=== PATIENT | male | born 1960 | race Caucasian/White ===

== ENCOUNTER 2019-02-23 11:06 | Emergency (ER) | payer MEDICAID ==
--- NOTE | 2019-02-23 12:40 | ER Document Report ---
ED Medical Screen (RME) - General Stated Complaint: LEFT ARM PAIN AND TINGLING Time Seen by Provider: 02/23/19 12:33 Mode of Arrival: Ambulatory Notes: 58-year-old male presents to the emergency department with history of DVT diabetes back pain with history of "flat lining "due to having a DVT. Female with patient reports that they just moved here and he does not have a provider. He was supposed to receive his PT/INR level February 20 but he has not. She is worried that it may be elevated or low and he may develop another clot and flat line again. She reports he does have problems with his left arm numbness and tingling but that is been going on for awhile. I have greeted and performed a rapid initial assessment of this patient. A comprehensive ED assessment and evaluation of the patient, analysis of test results and completion of the medical decision making process will be conducted by additional ED providers. Dictation of this chart was performed using voice recognition software; therefore, there may be some unintended grammatical errors. Physical Exam - Vital signs Vitals: Temp Pulse Resp BP Pulse Ox 97.7 F 65 18 135/73 H 93 02/23/19 11:52 02/23/19 11:52 02/23/19 11:52 02/23/19 11:52 02/23/19 11:52 Course - Vital Signs Vital signs: Temp Pulse Resp BP Pulse Ox 97.7 F 65 18 135/73 H 93 02/23/19 11:52 02/23/19 11:52 02/23/19 11:52 02/23/19 11:52 02/23/19 11:52
[2019-02-23 13:08] LABS: ABSOLUTE BASOPHILS # (AUTO) 0.1 10^3/uL (0.0-0.2); ABSOLUTE EOSINOPHILS # (AUTO) 0.1 10^3/uL (0.0-0.6); ABSOLUTE LYMPHOCYTES (AUTO) 0.9 10^3/uL (0.5-4.7); ABSOLUTE MONOCYTES (AUTO) 0.3 10^3/uL (0.1-1.4); ABSOLUTE NEUT (AUTO) 2.3 10^3/uL (1.7-8.2); BASOPHILS % (AUTO) 1.9 % (0-2); EOSINOPHILS % (AUTO) 1.4 % (0-6); HEMOGLOBIN 16.7 g/dL (13.5-17.0); LYMPHOCYTES % (AUTO) 24.7 % (13-45); MEAN CORPUSCULAR HEMOGLOBIN 34.4 pg (27.0-33.4); MEAN CORPUSCULAR HGB CONC 34.1 g/dL (32.0-36.0); MEAN CORPUSCULAR VOLUME 101 fl (80-97); MONOCYTES % (AUTO) 8.8 % (3-13); RED BLOOD COUNT 4.86 10^6/uL (4.35-5.55); RED CELL DISTRIBUTION WIDTH 15.2 % (11.5-14.0); SEGMENTED NEUTROPHILS % (AUTO) 63.2 % (42-78); TOTAL CELLS COUNTED % (AUTO) 100 %; WHITE BLOOD COUNT 3.7 10^3/uL (4.0-10.5)
[2019-02-23 13:09] LABS: INTERNATIONAL RATION (INR) 3.64; PROTHROMBIN TIME 37.1 SEC (11.4-15.4)
[2019-02-23 13:26] LABS: ALKALINE PHOSPHATASE 195 U/L (38-126); ANION GAP 5 (5-19); ASPARTATE AMINO TRANSFERASE 67 U/L (17-59); BILIRUBIN,DIRECT 0.5 mg/dL (0.0-0.4); BILIRUBIN,TOTAL 2.6 mg/dL (0.2-1.3); BLOOD UREA NITROGEN 12 mg/dL (7-20); CALCIUM 8.6 mg/dL (8.4-10.2); CARBON DIOXIDE 25 mmol/L (22-30); CHLORIDE 110 mmol/L (98-107); GLUCOSE 180 mg/dL (75-110)
[2019-02-23 13:41] LABS: PLATELET COUNT 80 10^3/uL (150-450)
--- NOTE | 2019-02-23 13:59 | ER Document Report ---
HPI - HPI Patient complains to provider of: labs Time Seen by Provider: 02/23/19 12:33 Onset: Other Quality of pain: No pain Pain Level: Denies Context: 58-year-old male presents to the emergency department with history of DVT diabetes back pain with history of "flat lining "due to having a DVT in his arm. Patient also has history of hep C in the past but no longer is hep C.. Female with patient reports that they just moved here and he does not have a provider yet. He was supposed to receive his PT/INR level February 20 but he has not. His last INR was 3.0. His coumadin was increased to 3 mg qHS. She is worried that it may be elevated or low and he may develop another clot and flat line again. Patient is asking for labs to be done. He also reports he does have problems with his left arm numbness and tingling but that has been going on for awhile. He denies fever vomiting diarrhea. Denies chest pain shortness of breath. Associated Symptoms: None Exacerbated by: Denies Relieved by: Denies Similar symptoms previously: Yes Recently seen / treated by doctor: No Past Medical History - General Information source: Patient - Social History Smoking Status: Never Smoker Chew tobacco use (# tins/day): No Frequency of alcohol use: None Drug Abuse: None Lives with: Family Family History: None Patient has suicidal ideation: No Patient has homicidal ideation: No - Past Medical History Cardiac Medical History: Reports: Hx DVT Endocrine Medical History: Reports: Hx Diabetes Mellitus Type 2 GI Medical History: Reports: Hx Hepatitis Surgical Hx: Negative Vertical Provider Document - CONSTITUTIONAL Agree With Documented VS: Yes Exam Limitations: No Limitations General Appearance: WD/WN, No Apparent Distress - INFECTION CONTROL TRAVEL OUTSIDE OF THE [place] IN LAST 30 DAYS: No - HEENT HEENT: Atraumatic, Normocephalic - NECK Neck: Normal Inspection, Supple - RESPIRATORY Respiratory: Breath Sounds Normal, No Respiratory Distress - CARDIOVASCULAR Cardiovascular: Regular Rate - MUSCULOSKELETAL/EXTREMETIES Musculoskeletal/Extremeties: BARRY WEEKS - NEURO Level of Consciousness: Awake, Alert, Appropriate Motor/Sensory: No Motor Deficit - DERM Integumentary: Warm, Dry Course - Re-evaluation Re-evalutation: 02/23/19 13:57 58-year-old male with history of diabetes DVT and hep C presents emergency department for request for his PT and INR. Reports he just moved here from [place] and does not have a provider. He was told to come to the emergency department for his labs. Last INR was 3.0 on January 23. He reports that his provider increased his Coumadin to 3 mg at night. Today's PT is 37 with and INR 3.6. This was discussed with patient. He is taking his labs and will fax it to his provider for direction. He will be also given information on primary care providers. 02/23/19 12:50 02/23/19 12:50 MCV 101 fl (80-97) H 02/23/19 12:50 MCH 34.4 pg (27.0-33.4) H 02/23/19 12:50 MCHC 34.1 g/dL (32.0-36.0) 02/23/19 12:50 RDW 15.2 % (11.5-14.0) H 02/23/19 12:50 Seg Neutrophils % 63.2 % (42-78) 02/23/19 12:50 Chloride 110 mmol/L (98-107) H 02/23/19 12:50 Carbon Dioxide 25 mmol/L (22-30) 02/23/19 12:50 Anion Gap 5 (5-19) 02/23/19 12:50 Est GFR ( Amer) > 60 (>60) 02/23/19 12:50 Glucose 180 mg/dL (75-110) H 02/23/19 12:50 Calcium 8.6 mg/dL (8.4-10.2) 02/23/19 12:50 Total Bilirubin 2.6 mg/dL (0.2-1.3) H 02/23/19 12:50 AST 67 U/L (17-59) H 02/23/19 12:50 Alkaline Phosphatase 195 U/L (38-126) H 02/23/19 12:50 Total Protein 7.0 g/dL (6.3-8.2) 02/23/19 12:50 Albumin 3.0 g/dL (3.5-5.0) L 02/23/19 12:50 02/23/19 15:17 - Vital Signs Vital signs: Temp Pulse Resp BP Pulse Ox 97.7 F 65 18 135/73 H 93 02/23/19 12:32 02/23/19 12:32 02/23/19 12:32 02/23/19 12:32 02/23/19 12:32 - Laboratory Result Diagrams: 02/23/19 12:50 02/23/19 12:50 Laboratory results interpreted by me: 02/23/19 02/23/19 02/23/19 12:50 12:50 12:50 WBC 3.7 L MCV 101 H MCH 34.4 H RDW 15.2 H Plt Count 80 L PT 37.1 H Chloride 110 H Glucose 180 H Total Bilirubin 2.6 H Direct Bilirubin 0.5 H AST 67 H Alkaline Phosphatase 195 H Albumin 3.0 L Discharge - Discharge Clinical Impression: PT\\INR Condition: Stable Disposition: HOME, SELF-CARE Instructions: Coumadin (warfarin) ([facility]), Family Physicians / Practices Additional Instructions: *You have been evaluated for PT/INR *Your PT was 37.1 with an INR of 3.64 *Follow up with your primary care provider today. Fax all information to them. * Follow-up with the primary care provider here in [place] within 1 week *Return to ED for worsening condition, changes, needs Monitor your blood pressure. Your blood pressure was elevated today. This may be because you were anxious, in pain or because you need medication. It is important to follow up with your primary care provider for full evaluation. Forms: Elevated Blood Pressure
[2019-02-23 14:18] VITALS: BP 136/75
== END 2019-02-23 14:05 | disposition home or self-care (01) ==
LOC: ER 11:06
DX: Z51.81 Encounter for therapeutic drug level monitoring (principal); I82.409 Acute embolism and thrombosis of unspecified deep veins of unspecified lower extremity; Z79.01 Long term (current) use of anticoagulants; R20.0 Anesthesia of skin; R20.2 Paresthesia of skin; E11.9 Type 2 diabetes mellitus without complications
CPT/HCPCS: 36415; 80053; 85025; 85610; 99284

== ENCOUNTER → 2019-03-29 | Outpatient (CLI) | payer MEDICAID ==
[2019-03-29 12:16] LABS: INTERNATIONAL RATION (INR) 2.92; PROTHROMBIN TIME 31.1 SEC (11.4-15.4)
== END ==
LOC: OD 11:19
PROVIDERS: ATTEND Family Medicine Geriatric Medicine
DX: I82.409 Acute embolism and thrombosis of unspecified deep veins of unspecified lower extremity (principal)
CPT/HCPCS: 36415; 85610

== ENCOUNTER → 2019-04-12 | Outpatient (CLI) | payer MEDICAID ==
[2019-04-12 13:01] LABS: INTERNATIONAL RATION (INR) 2.42; PROTHROMBIN TIME 26.8 SEC (11.4-15.4)
== END ==
LOC: OD 12:14
PROVIDERS: ATTEND Family Medicine Geriatric Medicine
DX: I82.409 Acute embolism and thrombosis of unspecified deep veins of unspecified lower extremity (principal)
CPT/HCPCS: 36415; 85610

== ENCOUNTER → 2019-05-02 | Outpatient (CLI) | payer MEDICAID ==
[2019-05-02 13:01] LABS: ABSOLUTE LYMPHOCYTES (AUTO) 0.9 10^3/uL (0.5-4.7); ABSOLUTE MONOCYTES (AUTO) 0.3 10^3/uL (0.1-1.4); ABSOLUTE NEUT (AUTO) 2.3 10^3/uL (1.7-8.2); BASOPHILS % (AUTO) 1.3 % (0-2); EOSINOPHILS % (AUTO) 1.1 % (0-6); HEMATOCRIT 43.9 % (37.9-51.0); HEMOGLOBIN 15.3 g/dL (13.5-17.0); LYMPHOCYTES % (AUTO) 25.7 % (13-45); MEAN CORPUSCULAR HEMOGLOBIN 34.8 pg (27.0-33.4); MEAN CORPUSCULAR HGB CONC 34.9 g/dL (32.0-36.0); MEAN CORPUSCULAR VOLUME 100 fl (80-97); MONOCYTES % (AUTO) 7.7 % (3-13); RED BLOOD COUNT 4.41 10^6/uL (4.35-5.55); RED CELL DISTRIBUTION WIDTH 15.4 % (11.5-14.0); SEGMENTED NEUTROPHILS % (AUTO) 64.2 % (42-78); TOTAL CELLS COUNTED % (AUTO) 100 %; WHITE BLOOD COUNT 3.6 10^3/uL (4.0-10.5)
[2019-05-02 13:04] LABS: INTERNATIONAL RATION (INR) 2.54; PROTHROMBIN TIME 27.8 SEC (11.4-15.4)
[2019-05-02 13:26] LABS: ALBUMIN 2.9 g/dL (3.5-5.0); ALKALINE PHOSPHATASE 215 U/L (38-126); ANION GAP 7 (5-19); ASPARTATE AMINO TRANSFERASE 92 U/L (17-59); BILIRUBIN,DIRECT 0.6 mg/dL (0.0-0.4); BILIRUBIN,TOTAL 2.7 mg/dL (0.2-1.3); BLOOD UREA NITROGEN 13 mg/dL (7-20); CALCIUM 8.5 mg/dL (8.4-10.2); CARBON DIOXIDE 22 mmol/L (22-30); CHLORIDE 109 mmol/L (98-107); GLUCOSE 223 mg/dL (75-110); POTASSIUM 4.6 mmol/L (3.6-5.0); TOTAL PROTEIN 7.1 g/dL (6.3-8.2)
[2019-05-02 13:37] LABS: PLATELET COUNT 95 10^3/uL (150-450)
[2019-05-03 11:37] LABS: CREATININE URINE 157.2 mg/dL (Not Estab.); MICROALBUMIN URINE 8.6 ug/mL (Not Estab.)
== END ==
LOC: OD 11:42
PROVIDERS: ATTEND Family Medicine Geriatric Medicine
DX: E11.9 Type 2 diabetes mellitus without complications (principal); I10 Essential (primary) hypertension; I82.409 Acute embolism and thrombosis of unspecified deep veins of unspecified lower extremity; Z79.899 Other long term (current) drug therapy
CPT/HCPCS: 36415; 80053; 82043; 82570; 83036; 84443; 85025; 85610

== ENCOUNTER → 2019-05-17 | Outpatient (CLI) | payer MEDICAID ==
[2019-05-17 14:12] LABS: INTERNATIONAL RATION (INR) 2.42; PROTHROMBIN TIME 26.7 SEC (11.4-15.4)
[2019-05-17 14:23] LABS: ABSOLUTE EOSINOPHILS # (AUTO) 0.1 10^3/uL (0.0-0.6); ABSOLUTE LYMPHOCYTES (AUTO) 1.2 10^3/uL (0.5-4.7); ABSOLUTE MONOCYTES (AUTO) 0.4 10^3/uL (0.1-1.4); ABSOLUTE NEUT (AUTO) 2.6 10^3/uL (1.7-8.2); BASOPHILS % (AUTO) 1.1 % (0-2); EOSINOPHILS % (AUTO) 1.3 % (0-6); HEMATOCRIT 44.6 % (37.9-51.0); HEMOGLOBIN 15.8 g/dL (13.5-17.0); LYMPHOCYTES % (AUTO) 27.9 % (13-45); MEAN CORPUSCULAR HEMOGLOBIN 35.1 pg (27.0-33.4); MEAN CORPUSCULAR HGB CONC 35.5 g/dL (32.0-36.0); MEAN CORPUSCULAR VOLUME 99 fl (80-97); MONOCYTES % (AUTO) 9.4 % (3-13); RED CELL DISTRIBUTION WIDTH 15.4 % (11.5-14.0); SEGMENTED NEUTROPHILS % (AUTO) 60.3 % (42-78); TOTAL CELLS COUNTED % (AUTO) 100 %; WHITE BLOOD COUNT 4.3 10^3/uL (4.0-10.5)
[2019-05-17 14:31] LABS: ALKALINE PHOSPHATASE 218 U/L (38-126); ANION GAP 7 (5-19); ASPARTATE AMINO TRANSFERASE 80 U/L (17-59); BILIRUBIN,DIRECT 0.6 mg/dL (0.0-0.4); BLOOD UREA NITROGEN 11 mg/dL (7-20); CALCIUM 8.5 mg/dL (8.4-10.2); CARBON DIOXIDE 23 mmol/L (22-30); CHLORIDE 108 mmol/L (98-107); CHOLESTEROL 159.53 mg/dL (0-200); GLUCOSE 129 mg/dL (75-110); POTASSIUM 4.1 mmol/L (3.6-5.0); TOTAL PROTEIN 7.1 g/dL (6.3-8.2); TRIGLYCERIDES 170 mg/dL (<150)
[2019-05-17 14:46] LABS: BLOOD UREA NITROGEN 11 mg/dL (7-20); CALCIUM 8.5 mg/dL (8.4-10.2); CHLORIDE 108 mmol/L (98-107); DIRECT LDL < 30 mg/dL (<100); GLUCOSE 129 mg/dL (75-110); POTASSIUM 4.1 mmol/L (3.6-5.0)
[2019-05-17 14:47] LABS: ALKALINE PHOSPHATASE 218 U/L (38-126); ANION GAP 7 (5-19); ASPARTATE AMINO TRANSFERASE 80 U/L (17-59); BILIRUBIN,DIRECT 0.6 mg/dL (0.0-0.4); CARBON DIOXIDE 23 mmol/L (22-30); TOTAL PROTEIN 7.1 g/dL (6.3-8.2)
[2019-05-17 14:49] LABS: PLATELET COUNT 75 10^3/uL (150-450)
[2019-05-17 14:52] LABS: ABSOLUTE EOSINOPHILS # (AUTO) 0.1 10^3/uL (0.0-0.6); ABSOLUTE LYMPHOCYTES (AUTO) 1.2 10^3/uL (0.5-4.7); ABSOLUTE MONOCYTES (AUTO) 0.4 10^3/uL (0.1-1.4); ABSOLUTE NEUT (AUTO) 2.6 10^3/uL (1.7-8.2); BASOPHILS % (AUTO) 1.1 % (0-2); EOSINOPHILS % (AUTO) 1.3 % (0-6); HEMATOCRIT 44.6 % (37.9-51.0); HEMOGLOBIN 15.8 g/dL (13.5-17.0); LYMPHOCYTES % (AUTO) 27.9 % (13-45); MEAN CORPUSCULAR HEMOGLOBIN 35.1 pg (27.0-33.4); MEAN CORPUSCULAR HGB CONC 35.5 g/dL (32.0-36.0); MEAN CORPUSCULAR VOLUME 99 fl (80-97); MONOCYTES % (AUTO) 9.4 % (3-13); RED CELL DISTRIBUTION WIDTH 15.4 % (11.5-14.0); SEGMENTED NEUTROPHILS % (AUTO) 60.3 % (42-78); TOTAL CELLS COUNTED % (AUTO) 100 %; WHITE BLOOD COUNT 4.3 10^3/uL (4.0-10.5)
[2019-05-17 14:53] LABS: PLATELET COUNT 75 10^3/uL (150-450)
[2019-05-18 11:37] LABS: CREATININE URINE 109.3 mg/dL (Not Estab.); MICROALBUMIN URINE <3.0 ug/mL (Not Estab.)
== END ==
LOC: OD 12:58
PROVIDERS: ATTEND Physician Assistant
DX: R17 Unspecified jaundice (principal); E11.9 Type 2 diabetes mellitus without complications; I10 Essential (primary) hypertension; Z79.899 Other long term (current) drug therapy; I27.82 Chronic pulmonary embolism; I27.20 Pulmonary hypertension, unspecified
CPT/HCPCS: 36415; 80053; 80061; 82043; 82570; 83036; 84443; 85025; 85610; 87070

== ENCOUNTER → 2019-06-08 | Outpatient (CLI) | payer MEDICAID ==
[2019-06-08 12:43] LABS: INTERNATIONAL RATION (INR) 2.88; PROTHROMBIN TIME 30.8 SEC (11.4-15.4)
== END ==
LOC: OD 11:57
PROVIDERS: ATTEND Family Medicine Geriatric Medicine
DX: I82.409 Acute embolism and thrombosis of unspecified deep veins of unspecified lower extremity (principal)
CPT/HCPCS: 36415; 85610

== ENCOUNTER → 2019-07-11 | Outpatient (CLI) | payer MEDICAID ==
[2019-07-11 13:29] LABS: INTERNATIONAL RATION (INR) 3.22; PROTHROMBIN TIME 33.6 SEC (11.4-15.4)
== END ==
LOC: OD 12:45
PROVIDERS: ATTEND Family Medicine Geriatric Medicine
DX: I26.99 Other pulmonary embolism without acute cor pulmonale (principal); I82.409 Acute embolism and thrombosis of unspecified deep veins of unspecified lower extremity
CPT/HCPCS: 36415; 85610

== ENCOUNTER → 2019-07-21 | Outpatient (CLI) | payer MEDICAID ==
[2019-07-21 15:41] LABS: INTERNATIONAL RATION (INR) 2.38; PROTHROMBIN TIME 26.4 SEC (11.4-15.4)
== END ==
LOC: OD 14:49
PROVIDERS: ATTEND Family Medicine Geriatric Medicine
DX: I82.409 Acute embolism and thrombosis of unspecified deep veins of unspecified lower extremity (principal)
CPT/HCPCS: 36415; 85610

== ENCOUNTER → 2019-08-17 | Outpatient (CLI) | payer MEDICAID ==
[2019-08-17 13:21] LABS: INTERNATIONAL RATION (INR) 2.14; PROTHROMBIN TIME 24.3 SEC (11.4-15.4)
== END ==
LOC: OD 12:46
PROVIDERS: ATTEND Family Medicine Geriatric Medicine
DX: I82.409 Acute embolism and thrombosis of unspecified deep veins of unspecified lower extremity (principal); E11.9 Type 2 diabetes mellitus without complications
CPT/HCPCS: 36415; 83036; 85610

== ENCOUNTER → 2019-08-29 | Outpatient (CLI) | payer MEDICAID ==
[2019-08-29 15:56] LABS: INTERNATIONAL RATION (INR) 1.84; PROTHROMBIN TIME 21.5 SEC (11.4-15.4)
== END ==
LOC: OD 14:58
PROVIDERS: ATTEND Family Medicine Geriatric Medicine
DX: I82.409 Acute embolism and thrombosis of unspecified deep veins of unspecified lower extremity (principal)
CPT/HCPCS: 36415; 85610

== ENCOUNTER → 2019-09-12 | Outpatient (CLI) | payer MEDICAID ==
[2019-09-12 16:12] LABS: INTERNATIONAL RATION (INR) 3.49; PROTHROMBIN TIME 35.9 SEC (11.4-15.4)
[2019-09-12 16:16] LABS: INTERNATIONAL RATION (INR) 3.49; PROTHROMBIN TIME 35.9 SEC (11.4-15.4)
[2019-09-12 16:21] LABS: ABSOLUTE EOSINOPHILS # (AUTO) 0.1 10^3/uL (0.0-0.6); ABSOLUTE LYMPHOCYTES (AUTO) 1.2 10^3/uL (0.5-4.7); ABSOLUTE MONOCYTES (AUTO) 0.5 10^3/uL (0.1-1.4); ABSOLUTE NEUT (AUTO) 2.1 10^3/uL (1.7-8.2); BASOPHILS % (AUTO) 1.2 % (0-2); EOSINOPHILS % (AUTO) 1.7 % (0-6); HEMATOCRIT 43.1 % (37.9-51.0); LYMPHOCYTES % (AUTO) 30.2 % (13-45); MEAN CORPUSCULAR HEMOGLOBIN 34.5 pg (27.0-33.4); MEAN CORPUSCULAR HGB CONC 34.7 g/dL (32.0-36.0); MEAN CORPUSCULAR VOLUME 100 fl (80-97); MONOCYTES % (AUTO) 13.7 % (3-13); RED BLOOD COUNT 4.34 10^6/uL (4.35-5.55); RED CELL DISTRIBUTION WIDTH 15.1 % (11.5-14.0); SEGMENTED NEUTROPHILS % (AUTO) 53.2 % (42-78); TOTAL CELLS COUNTED % (AUTO) 100 %
[2019-09-12 16:37] LABS: ALBUMIN 2.4 g/dL (3.5-5.0); ALKALINE PHOSPHATASE 140 U/L (38-126); ANION GAP 6 (5-19); ASPARTATE AMINO TRANSFERASE 74 U/L (17-59); BILIRUBIN,DIRECT 0.3 mg/dL (0.0-0.4); BILIRUBIN,TOTAL 1.7 mg/dL (0.2-1.3); BLOOD UREA NITROGEN 11 mg/dL (7-20); CALCIUM 7.8 mg/dL (8.4-10.2); CARBON DIOXIDE 20 mmol/L (22-30); CHLORIDE 110 mmol/L (98-107); GLUCOSE 171 mg/dL (75-110); POTASSIUM 3.6 mmol/L (3.6-5.0); TOTAL PROTEIN 6.1 g/dL (6.3-8.2)
[2019-09-12 16:43] LABS: PLATELET COUNT 81 10^3/uL (150-450)
== END ==
LOC: OD 15:18
PROVIDERS: ATTEND Family Medicine Geriatric Medicine
DX: C22.0 Liver cell carcinoma (principal); I82.409 Acute embolism and thrombosis of unspecified deep veins of unspecified lower extremity; I26.99 Other pulmonary embolism without acute cor pulmonale; K74.60 Unspecified cirrhosis of liver
CPT/HCPCS: 36415; 80053; 82105; 85025; 85610

== ENCOUNTER → 2019-09-22 | Outpatient (CLI) | payer MEDICAID ==
[2019-09-22 17:25] LABS: INTERNATIONAL RATION (INR) 2.46; PROTHROMBIN TIME 27.1 SEC (11.4-15.4)
== END ==
LOC: OD 16:23
PROVIDERS: ATTEND Family Medicine Geriatric Medicine
DX: I82.409 Acute embolism and thrombosis of unspecified deep veins of unspecified lower extremity (principal)
CPT/HCPCS: 36415; 85610

== ENCOUNTER → 2019-10-10 | Outpatient (CLI) | payer MEDICAID ==
[2019-10-10 14:46] LABS: INTERNATIONAL RATION (INR) 2.34; PROTHROMBIN TIME 26.1 SEC (11.4-15.4)
== END ==
LOC: OD 14:04
PROVIDERS: ATTEND Family Medicine Geriatric Medicine
DX: I82.409 Acute embolism and thrombosis of unspecified deep veins of unspecified lower extremity (principal)
CPT/HCPCS: 36415; 85610

== ENCOUNTER → 2019-11-01 | Outpatient (CLI) | payer MEDICAID ==
[2019-11-01 13:46] LABS: INTERNATIONAL RATION (INR) 2.74; PROTHROMBIN TIME 28.9 SEC (11.4-15.4)
== END ==
LOC: OD 12:41
PROVIDERS: ATTEND Family Medicine Geriatric Medicine
DX: I26.99 Other pulmonary embolism without acute cor pulmonale (principal); I82.409 Acute embolism and thrombosis of unspecified deep veins of unspecified lower extremity
CPT/HCPCS: 36415; 85610

== ENCOUNTER → 2019-11-30 | Outpatient (CLI) | payer MEDICAID ==
[2019-11-30 09:56] LABS: ABSOLUTE EOSINOPHILS # (AUTO) 0.1 10^3/uL (0.0-0.6); ABSOLUTE LYMPHOCYTES (AUTO) 0.8 10^3/uL (0.5-4.7); ABSOLUTE MONOCYTES (AUTO) 0.4 10^3/uL (0.1-1.4); ABSOLUTE NEUT (AUTO) 2.7 10^3/uL (1.7-8.2); BASOPHILS % (AUTO) 1.2 % (0-2); EOSINOPHILS % (AUTO) 1.9 % (0-6); HEMATOCRIT 44.8 % (37.9-51.0); HEMOGLOBIN 15.4 g/dL (13.5-17.0); INTERNATIONAL RATION (INR) 2.28; LYMPHOCYTES % (AUTO) 19.1 % (13-45); MEAN CORPUSCULAR HEMOGLOBIN 35.4 pg (27.0-33.4); MEAN CORPUSCULAR HGB CONC 34.3 g/dL (32.0-36.0); MEAN CORPUSCULAR VOLUME 103 fl (80-97); MONOCYTES % (AUTO) 9.2 % (3-13); PLATELET COUNT 105 10^3/uL (150-450); PROTHROMBIN TIME 25.2 SEC (11.4-15.4); RED BLOOD COUNT 4.34 10^6/uL (4.35-5.55); RED CELL DISTRIBUTION WIDTH 15.2 % (11.5-14.0); SEGMENTED NEUTROPHILS % (AUTO) 68.6 % (42-78); TOTAL CELLS COUNTED % (AUTO) 100 %; WHITE BLOOD COUNT 3.9 10^3/uL (4.0-10.5)
[2019-11-30 10:07] LABS: ALBUMIN 2.5 g/dL (3.5-5.0); ALKALINE PHOSPHATASE 149 U/L (38-126); ASPARTATE AMINO TRANSFERASE 71 U/L (17-59); BILIRUBIN,DIRECT 1.4 mg/dL (0.0-0.4); BILIRUBIN,TOTAL 3.5 mg/dL (0.2-1.3); BLOOD UREA NITROGEN 14 mg/dL (7-20); CALCIUM 7.9 mg/dL (8.4-10.2); CARBON DIOXIDE 26 mmol/L (22-30); CHLORIDE 105 mmol/L (98-107); GLUCOSE 164 mg/dL (75-110); TOTAL PROTEIN 6.6 g/dL (6.3-8.2)
[2019-11-30 10:10] LABS: CHOLESTEROL 88.61 mg/dL (0-200); TRIGLYCERIDES 113 mg/dL (<150)
[2019-11-30 10:12] LABS: ANION GAP 5 (5-19)
[2019-11-30 10:57] LABS: DIRECT LDL < 30 mg/dL (<100)
[2019-11-30 12:12] LABS: FOLATE 5.14 ng/mL (>2.76)
== END ==
LOC: OD 09:15
PROVIDERS: ATTEND Family Medicine Geriatric Medicine
DX: I26.99 Other pulmonary embolism without acute cor pulmonale (principal); I82.409 Acute embolism and thrombosis of unspecified deep veins of unspecified lower extremity; C22.0 Liver cell carcinoma; Z79.899 Other long term (current) drug therapy
CPT/HCPCS: 36415; 80053; 80061; 82607; 82746; 84460; 85025; 85610

== ENCOUNTER → 2019-12-16 | Outpatient (CLI) | payer MEDICAID ==
[2019-12-16 14:24] LABS: INTERNATIONAL RATION (INR) 1.94; PROTHROMBIN TIME 22.3 SEC (11.4-15.4)
== END ==
LOC: OD 12:58
PROVIDERS: ATTEND Family Medicine Geriatric Medicine
DX: I82.409 Acute embolism and thrombosis of unspecified deep veins of unspecified lower extremity (principal)
CPT/HCPCS: 36415; 85610

== ENCOUNTER 2019-12-30 14:40 | Emergency (ER) | payer MEDICAID ==
--- NOTE | 2019-12-30 15:03 | ER Document Report ---
ED Medical Screen (RME) - General Chief Complaint: Abdominal Swelling Stated Complaint: ABDOMINAL SWELLING Time Seen by Provider: 12/30/19 14:58 Primary Care Provider: JOSE ALEXANDER MD [Primary Care Provider] - Follow up as needed Mode of Arrival: Wheelchair Information source: Patient Notes: 59-year-old male presented to ED for complaint of ascites. He does have liver cancer and is planning to sign up for hospice pretty soon. His ex- is with him. She states she took him to [place] about 3 weeks ago they took off 1/2 L. He is on Coumadin. Will get CBC chemistry PT PT/INR and ultrasound for evaluation of the ascites. He states he does smoke 1 cigarette a day does not drink or use any illicit drugs. I have greeted and performed a rapid initial assessment of this patient. A comprehensive ED assessment and evaluation of the patient, analysis of test results and completion of medical decision making process will be conducted by an additional ED providers. TRAVEL OUTSIDE OF THE U.S. IN LAST 30 DAYS: No - Related Data Allergies/Adverse Reactions: No Known Allergies Allergy (Verified 02/23/19 12:39) Past Medical History - Past Medical History Cardiac Medical History: Reports: Hx DVT Endocrine Medical History: Reports: Hx Diabetes Mellitus Type 2 GI Medical History: Reports: Hx Hepatitis Infectious Medical History: Reports: Hx Hepatitis Physical Exam - Vital signs Vitals: Temp Pulse Resp BP Pulse Ox 97.5 F 88 18 156/93 H 97 12/30/19 14:50 12/30/19 14:50 12/30/19 14:50 12/30/19 14:50 12/30/19 14:50 Course - Vital Signs Vital signs: Temp Pulse Resp BP Pulse Ox 97.5 F 88 18 156/93 H 97 12/30/19 14:50 12/30/19 14:50 12/30/19 14:50 12/30/19 14:50 12/30/19 14:50 Doctor's Discharge - Discharge Referrals: JOSE ALEXANDER MD [Primary Care Provider] - Follow up as needed
[2019-12-30 15:56] LABS: ABSOLUTE BASOPHILS # (AUTO) 0.1 10^3/uL (0.0-0.2); ABSOLUTE EOSINOPHILS # (AUTO) 0.1 10^3/uL (0.0-0.6); ABSOLUTE LYMPHOCYTES (AUTO) 0.9 10^3/uL (0.5-4.7); ABSOLUTE MONOCYTES (AUTO) 0.5 10^3/uL (0.1-1.4); ABSOLUTE NEUT (AUTO) 3.7 10^3/uL (1.7-8.2); EOSINOPHILS % (AUTO) 1.6 % (0-6); HEMATOCRIT 43.9 % (37.9-51.0); HEMOGLOBIN 15.3 g/dL (13.5-17.0); LYMPHOCYTES % (AUTO) 16.4 % (13-45); MEAN CORPUSCULAR HGB CONC 34.8 g/dL (32.0-36.0); MEAN CORPUSCULAR VOLUME 104 fl (80-97); MONOCYTES % (AUTO) 8.7 % (3-13); RED BLOOD COUNT 4.24 10^6/uL (4.35-5.55); RED CELL DISTRIBUTION WIDTH 15.9 % (11.5-14.0); SEGMENTED NEUTROPHILS % (AUTO) 72.3 % (42-78); TOTAL CELLS COUNTED % (AUTO) 100 %; WHITE BLOOD COUNT 5.2 10^3/uL (4.0-10.5)
[2019-12-30 16:00] LABS: ALBUMIN 2.5 g/dL (3.5-5.0); ALKALINE PHOSPHATASE 157 U/L (38-126); ANION GAP 7 (5-19); ASPARTATE AMINO TRANSFERASE 75 U/L (17-59); BILIRUBIN,DIRECT 1.7 mg/dL (0.0-0.4); BILIRUBIN,TOTAL 4.9 mg/dL (0.2-1.3); BLOOD UREA NITROGEN 11 mg/dL (7-20); CALCIUM 7.9 mg/dL (8.4-10.2); CARBON DIOXIDE 21 mmol/L (22-30); CHLORIDE 108 mmol/L (98-107); GLUCOSE 234 mg/dL (75-110); POTASSIUM 4.1 mmol/L (3.6-5.0); TOTAL PROTEIN 6.7 g/dL (6.3-8.2)
[2019-12-30 16:04] LABS: INTERNATIONAL RATION (INR) 2.81; PROTHROMBIN TIME 29.5 SEC (11.4-15.4)
[2019-12-30 16:05] LABS: PARTIAL THROMBOPLASTIN TIME 49.1 SEC (23.5-35.8)
--- NOTE | 2019-12-30 16:13 | RADIOLOGY REPORT (SQ) ---
EXAM DESCRIPTION: U/S ABDOMEN LIMITED W/O DOP IMAGES COMPLETED DATE/TIME: 12/30/2019 3:54 pm REASON FOR STUDY: Evaluate ascites COMPARISON: None. TECHNIQUE: Limited Static and real time james scale imaging performed of the 4 abdominal quadrants an d the midline. LIMITATIONS: None. FINDINGS: ASCITES: Moderate ascites in all 4 quadrants OTHER: No other significant finding. IMPRESSION: Moderate ascites in all 4 quadrants TECHNICAL DOCUMENTATION: JOB ID: [id number] [employer]- All Rights Reserved Reading location - IP/workstation name: [email or web address]
[2019-12-30 16:21] LABS: PLATELET COUNT 93 10^3/uL (150-450)
--- NOTE | 2019-12-30 18:53 | ER Document Report ---
Entered by YURI RODRIGUEZ SCRIBE 12/30/19 1749 Acting as scribe for:ROSIO REYES MD ED General - General Chief Complaint: Abdominal Pain Stated Complaint: ABDOMINAL SWELLING Time Seen by Provider: 12/30/19 14:58 Primary Care Provider: JOSE ALEXANDER MD [Primary Care Provider] - Follow up as needed Mode of Arrival: Wheelchair Information source: Patient Notes: This 59-year-old male patient with terminal liver cancer presents to the e mergency department today for complaints of ascites. Patient states he had 4- 1/2 L drained off of his abdomen 3 weeks ago [facility]. Patient states he was only there for 1 day and they to his knowledge did not stop his Coumadin. Patient had a total bilirubin of 1.7 on September 11, 3.5 on November 29, and today it is 4.9. TRAVEL OUTSIDE OF THE [place] IN LAST 30 DAYS: No - Related Data Allergies/Adverse Reactions: No Known Allergies Allergy (Verified 02/23/19 12:39) Past Medical History - General Information source: Patient - Social History Smoking Status: Current Every Day Smoker Cigarette use (# per day): Yes - 1-2 cig per day, history of 2 pack per day Frequency of alcohol use: former alcoholic Drug Abuse: None Lives with: Family Family History: None - Past Medical History Cardiac Medical History: Reports: Hx DVT Endocrine Medical History: Reports: Hx Diabetes Mellitus Type 2 Malignancy Medical History: Reports Hx Liver Cancer GI Medical History: Reports: Hx Hepatitis Infectious Medical History: Reports: Hx Hepatitis Past Surgical History: Reports: Hx Cholecystectomy Review of Systems - Review of Systems Constitutional: No symptoms reported EENT: No symptoms reported Cardiovascular: No symptoms reported Respiratory: No symptoms reported Gastrointestinal: See HPI, Abdomen distended Genitourinary: No symptoms reported Male Genitourinary: No symptoms reported Musculoskeletal: No symptoms reported Skin: No symptoms reported Hematologic/Lymphatic: No symptoms reported Neurological/Psychological: No symptoms reported -: Yes All other systems reviewed and negative Physical Exam - Vital signs Vitals: Temp Pulse Resp BP Pulse Ox 97.5 F 88 18 156/93 H 97 12/30/19 14:50 12/30/19 14:50 12/30/19 14:50 12/30/19 14:50 12/30/19 14:50 - Notes Notes: Physical Exam: General: Alert, appears cachectic, chronically ill. HEENT: Normocephalic. Atraumatic. PERRL. Extraocular movements intact. Oropharynx clear. Scleral icterus Neck: Supple. Non-tender. Respiratory: No respiratory distress. Coarse breath sounds bilaterally. Cardiovascular: Regular rate and rhythm. Abdominal: Moderately distended abdomen consistent with ascites, not tense. Non- tender. Normal Bowel Sounds. Back: No gross abnormalities. Extremities: Moves all four extremities. Upper extremities: Normal inspection. Normal ROM. Lower extremities: Normal inspection. No edema. Normal ROM. Neurological: Normal cognition. AAOx4. Normal speech. Psychological: Normal affect. Normal Mood. Skin: Warm. Dry. Normal color. Course - Re-evaluation Re-evalutation: 12/30/19 19:11 The states that the patient is entering hospice soon, and they had discussed a permanent paracentesis catheter. I called Dr. Marquez back and he thinks that is a good idea and he would prefer to place a permanent catheter this week after his bleeding times return closer to normal. He requests that they call the office Thursday morning to schedule the appointment and any needed outpatient testing. - Vital Signs Vital signs: Temp Pulse Resp BP Pulse Ox 97.5 F 88 18 156/93 H 97 12/30/19 14:50 12/30/19 14:50 12/30/19 14:50 12/30/19 14:50 12/30/19 14:50 - Laboratory Result Diagrams: 12/30/19 15:17 12/30/19 15:17 Laboratory results interpreted by me: 12/30/19 12/30/19 12/30/19 15:17 15:17 15:17 RBC 4.24 L MCV 104 H MCH 36.0 H RDW 15.9 H Plt Count 93 L PT 29.5 H APTT 49.1 H Sodium 135.7 L Chloride 108 H Carbon Dioxide 21 L Glucose 234 H Calcium 7.9 L Total Bilirubin 4.9 H Direct Bilirubin 1.7 H AST 75 H Alkaline Phosphatase 157 H Albumin 2.5 L Discharge - Discharge Clinical Impression: Ascites Qualifiers: Ascites type: other type Qualified Code(s): R18.8 - Other ascites Liver cancer Qualifiers: Liver malignancy type: unspecified liver malignancy Qualified Code(s): C22.9 - Malignant neoplasm of liver, not specified as primary or secondary Condition: Stable Disposition: HOME, SELF-CARE Additional Instructions: Stop taking your Coumadin today. Call [facility] on Thursday to schedule an appointment with Dr. Marquez, and also to schedule any outpatient testing that he will require prior to doing your procedure. Tell the office staff that he is planning to put in a permanent paracentesis catheter. RETURN TO THE EMERGENCY ROOM IF ANY NEW OR WORSENING SYMPTOMS. Referrals: JOSE ALEXANDER MD [Primary Care Provider] - Follow up as needed MARRY MARQUEZ MD [ACTIVE STAFF] - Follow up in 3-5 days (Call the office Thursday to schedule outpatient testing and an appointment with Dr. Marquez.) I personally performed the services described in the documentation, reviewed and edited the documentation which was dictated to the scribe in my presence, and it accurately records my words and actions.
[2019-12-30 19:12] VITALS: BP 148/91
== END 2019-12-30 19:15 | disposition home or self-care (01) ==
LOC: ER 14:40
DX: R18.8 Other ascites (principal); C22.9 Malignant neoplasm of liver, not specified as primary or secondary; F17.210 Nicotine dependence, cigarettes, uncomplicated; E11.9 Type 2 diabetes mellitus without complications; Z90.49 Acquired absence of other specified parts of digestive tract; Z86.19 Personal history of other infectious and parasitic diseases; Z86.718 Personal history of other venous thrombosis and embolism; Z79.01 Long term (current) use of anticoagulants
CPT/HCPCS: 36415; 76705; 80053; 83690; 85025; 85610; 85730; 99284

== ENCOUNTER 2020-01-04 11:56 | Day surgery (SDC) | payer MEDICAID ==
[~2020-01-04 11:56] MED LIST: PROPOFOL INJ 200 MG/20 ML VIAL IV ONE
--- NOTE | 2020-01-04 14:40 | Discharge Summary ---
Discharge Summary (SDC) - Discharge Final Diagnosis: malignant ascites Date of Surgery: 01/04/20 Discharge Date: 01/04/20 Condition: Fair Forms: EU Anesthesia D/C Instructions, Discharge POC-Surgical Service Treatment or Instructions: ACTIVITY TOLERATED ADVANCE DIET TOLERATED MONITOR PROCEDURE SITE FOR ANY BLEEDING, DRAINAGE, OR SIGN OF INFECTION CALL PHYSICIAN OR RETURN TO ER WITH ANY PROBLEMS followup one week at [facility] Referrals: MARRY MCKEE MD [ACTIVE STAFF] - 01/12/20 11:00 am Discharge Diet: As Tolerated Respiratory Treatments at Home: Deep Breathing/Coughing Discharge Activity: Activity As Tolerated, Balance Activity w/Rest, No Driving Home Care Assistance: None Needed Report the Following to Your Physician Immediately: Shortness of Breath, Nausea, Vomiting, Increase in Pain, Fever over 101 Degrees, Unusual Bleeding, IV Site Infection Signs
--- NOTE | 2020-01-04 14:45 | Operative Report ---
Nonrecallable Operative Report DATE OF SURGERY: 01/04/20 PREOPERATIVE DIAGNOSIS: Malignant ascites POSTOPERATIVE DIAGNOSIS: Same as above OPERATION: Ultrasound-guided paracentesis SURGEON: MARRY MCKEE ANESTHESIA: Local TISSUE REMOVED OR ALTERED: 6.2 L of clear yellow ascites COMPLICATIONS: None apparent ESTIMATED BLOOD LOSS: Minimal PROCEDURE: Drains/implants: None. Procedure in detail: After informed consent was obtained, the patient was brought into the operating room and sat in the upright position. The ultrasound was used to survey the abdomen. There was a large amount of fluid in the abdomen. A suitable place for paracentesis was chosen in the left lower quadrant. The area of the left lower quadrant abdominal wall was prepped and draped in a normal sterile fashion. Under ultrasonic guidance, the paracentesis catheter was inserted into the abdomen percutaneously. Clear yellow ascites was returned in the syringe. The catheter was slid over the needle. The catheter was attached to suction, and 6.2 L of ascites was removed. Once no more ascites could be returned, the catheter was removed. The patient was laid flat, and a dressing was placed. At this time the procedure was concluded. All sponge, instrument, and needle counts were correct x2. Condition: Fair.
[2020-01-04 14:56] VITALS: BP 156/94
== END 2020-01-04 14:42 | disposition home or self-care (01) ==
LOC: END 11:56
PROVIDERS: ATTEND Surgery
DX: C22.9 Malignant neoplasm of liver, not specified as primary or secondary (principal); R18.0 Malignant ascites; F17.210 Nicotine dependence, cigarettes, uncomplicated; Z79.899 Other long term (current) drug therapy
CPT/HCPCS: 49082; 49083; 82962; J2704

== ENCOUNTER 2020-01-18 10:52 | Day surgery (SDC) | payer OTHER, MEDICAID ==
[2020-01-18 13:45] VITALS: BP 126/67
--- NOTE | 2020-01-18 19:54 | Discharge Summary ---
Discharge Summary (SDC) - Discharge Final Diagnosis: Ascites Date of Surgery: 01/18/20 Discharge Date: 01/18/20 Condition: Poor Forms: Discharge POC-Surgical Service Treatment or Instructions: ADVANCE DIET AND ACTIVITY TOLERATED MONITOR PROCEDURE SITE CALL PHYSICIAN IF ANY LEAKING, BLEEDING, OR SIGNS OF INFECTION Referrals: MARRY MCKEE MD [ACTIVE STAFF] - Discharge Diet: As Tolerated Respiratory Treatments at Home: Deep Breathing/Coughing Discharge Activity: Activity As Tolerated, No Driving Home Care Assistance: None Needed Report the Following to Your Physician Immediately: Shortness of Breath, Nausea, Vomiting, Increase in Pain, Fever over 101 Degrees, Unusual Bleeding, Increased Soreness, Drainage-Yellow, Drainage-Green
--- NOTE | 2020-01-18 20:00 | Operative Report ---
Nonrecallable Operative Report DATE OF SURGERY: 01/18/20 PREOPERATIVE DIAGNOSIS: Malignant ascites POSTOPERATIVE DIAGNOSIS: Same as above OPERATION: Ultrasound-guided paracentesis SURGEON: MARRY MCKEE ANESTHESIA: Local TISSUE REMOVED OR ALTERED: 7.8 L of ascites COMPLICATIONS: None apparent ESTIMATED BLOOD LOSS: Minimal PROCEDURE: Procedure in detail: After informed consent was obtained, the patient was brought into the endoscopy suite and laid in the upright position. The area of the abdomen was prepped and draped in a normal sterile fashion. An ultrasound was used to identify the intra-abdominal fluid. An appropriate place was chosen on the left lower quadrant with the ultrasound. The skin of the left lower quadrant was infiltrated with lidocaine. Under direct ultrasonic guidance, the paracentesis catheter was inserted into the abdominal cavity. 7.8 L of clear yellow ascites was drained from the abdominal cavity. Once all of the ascites had been removed, the catheter was withdrawn, a dressing was placed, and the procedure was concluded. All sponge, instrument, and needle counts were chidi ect. Condition: Fair.
== END 2020-01-18 13:48 | disposition home or self-care (01) ==
LOC: END 10:52
PROVIDERS: ATTEND Surgery
DX: C22.9 Malignant neoplasm of liver, not specified as primary or secondary (principal); R18.0 Malignant ascites; E11.9 Type 2 diabetes mellitus without complications; Z86.718 Personal history of other venous thrombosis and embolism; Z86.19 Personal history of other infectious and parasitic diseases; F17.210 Nicotine dependence, cigarettes, uncomplicated; Z79.899 Other long term (current) drug therapy; Z98.2 Presence of cerebrospinal fluid drainage device; Z79.84 Long term (current) use of oral hypoglycemic drugs
CPT/HCPCS: 49082; 82962